=== PATIENT | male | born 2005 | race Caucasian/White ===

== ENCOUNTER 2024-01-13 18:09 | Emergency (ER) | payer OTHER, SELFPAY ==
[2024-01-13 18:14] VITALS: BP 124/80; PULSE 129; RESP 22; TEMP 37.4; O2SAT 98; BMI 23.6
--- NOTE | 2024-01-13 18:24 | ED_ITS ---
HPI - Extremity Injury (Upper) General Time Seen by Provider: 18:24 Date Seen: 01/13/24 Chief Complaint: Extremity Pain/Injury, Upper Stated Complaint: possible broken R arm Time Seen by Provider: 01/13/24 18:11 Source: patient and RN notes reviewed Mode of arrival: ambulatory Limitations: no limitations History of Present Illness HPI narrative: This 18-year-old male is coming in with concern of a right arm injury. Two days ago he was leaning back in a chair, went too far back and started to lose his balance. He turned around somewhat in the chair and braced his fall with his right arm. He is not sure if he rolled on top of the arm after the fall. Since then, he is noticing some pain in the elbow and the arm, especially with attempts at lifting anything. Pain is not in the shoulder, is not in his collarbone. He denies any numbness or tingling. He has no pain in the forearm, wrist, hand or fingers on the right side. He really has not noticed any s welling. He was concerned as he continues to have pain with range of motion at times, definitely has pain if he attempts to lift anything with this arm. Nothing else was injured. Patient goes to [facility]. MARIA complaint: injury to: right and arm Related Data Home Medications ?Medication ?Instructions ?Recorded ?Confirmed methylphenidate HCl 27 mg 27 mg PO DAILY 01/13/24 01/13/24 tablet,extended release 24 hr (Concerta) Allergies Allergy/AdvReac Type Severity Reaction Status Date / Time No Known Drug Allergies Allergy Verified 01/13/24 18:19 Review of Systems Narrative: As per HPI. PFSH PFSH Social History Smoking Status: Never smoker Do you use any of these nicotine containing products: None How often do you have a drink containing alcohol: never AUDIT-C Alcohol total score: 0 Non-prescribed substance use: denies use Exam Const: Vital Signs, click to edit/add: Vital Signs - 24 hr 01/13/24 18:14 Temperature 99.3 F Pulse Rate [Pulse Oximeter] 129 H Respiratory Rate 22 Blood Pressure [Le ft Upper Arm] 124/80 Pulse Oximetry 98 This 18-year-old male is alert, interactive, no apparent distress. Ambulatory into the ED of his own accord. He is nontender over his right clavicle, AC joint, glenohumeral joint, proximal humerus. I do not palpate any pain down his upper arm. He starts to have some pain around the right lateral elbow but I can still supinate pronate, does not cause him significant pain. He can fully flex at the elbow but extension causes him pain, seems to maybe be missing the full extension of this arm in comparison to his left. There is maybe just slight increased tissue thickening about the right elbow but no ecchymosis. Right elbow area certainly looks enlarged compared to his left. No pain down the forearm, no wrist pain, no hand or finger pain. He has preserved finger strength, hand policy change clerk strength, wrist flexion extension. He has no loss was strength about the elbow or the upper arm. No pain on arc of abduction or adduction with his shoulder. Does complain of some pain in his upper arm when I do biceps strength testing. He has no give-way strength testing anywhere throughout this arm. Documenting provider has reviewed patient's vital signs: yes Course Course ED Course: We will be obtaining x-rays of his humerus as well as his elbow on the right side. I suspect that there may be a radial head injury based on his examination but we will await x-ray images. Reevaluation(s) Time of Reevaluation #1: 19:32 Reevaluation #1: Provided patient a copy of his x-ray report. Reviewed that there is a radial head fracture which is what I suspected clinically. Will place him in a sling, did review pendulum exercises. Will have him follow up outpatient with Orthopedics. Vital Signs Vital signs: Initial Vital Signs Temperature 99.3 F 01/13/24 18:14 Temperature Source Temporal Artery Scan 01/13/24 18:14 Pulse Rate 129 H 01/13/24 18:14 Pulse Rhythm Regular 01/13/24 18:14 Respiratory Rate 22 01/13/24 18:14 Blood Pressure 124/80 01/13/24 18:14 Blood Pressure Mean 94 01/13/24 18:14 Blood Pressure Position Sitting 01/13/24 18:14 Pulse Oximetry 98 01/13/24 18:14 Vital Signs Temperature 99.3 F 01/13/24 18:14 Pulse Rate 129 H 01/13/24 18:14 Respiratory Rate 22 01/13/24 18:14 Blood Pressure 124/80 01/13/24 18:14 Pulse Oximetry 98 01/13/24 18:14 Temperature 99.3 F 01/13/24 18:14 Pulse Rate 129 H 01/13/24 18:14 Respiratory Rate 22 01/13/24 18:14 Blood Pressure 124/80 01/13/24 18:14 Pulse Oximetry 98 01/13/24 18:14 MDM - Extremity Injury (Upper) Imaging Data XR right humerus: Attestation: I have reviewed the pertinent imaging results. My impression: Do see posterior sail sign, probable radial head fracture, await Radiology over- read. Radiologist's impression: Patient: [facility] Facility:?[facility] Patient ID:?[id number] Site Patient ID:?[id number]. Site :?[id number] Study:?XRay-Extremity Right HUMERUS 2V-01/13/2024 6:50:26 PM Ordering Physician:?Ashwin Andrea Final Report: INDICATION [Fall] COMPARISON [None.] TECHNIQUE Three views of the right elbow and two views of the right humerus FINDINGS Acute minimally displaced fracture of the radial head. No additional acute displaced fracture is identified. [Moderate elbow joint effusion.] [No substantial degenerative change of the elbow.] IMPRESSION Acute minimally displaced fracture of the radial head with a moderate elbow joint effusion. Dictated by: Gabriel Santo MD @ 01/13/2024 19:28:41 (Electronic Signature) XR right elbow: Attestation: I have reviewed the pertinent imaging results. Radiologist's impression: Patient: [facility] Facility:?[facility] Patient ID:?[id number] Site Patient ID:?[id number]. Site :?2004 Study:?XRay-Extremity Right ELBOW-01/13/2024 6:49:54 PM Ordering Physician:?Ashwin Andrea Final Report: INDICATION: Fall COMPARISON: None. TECHNIQUE: Three views of the right elbow and two views of the right humerus FINDINGS: Acute minimally displaced fracture of the radial head. No additional acute displaced fracture is identified. Moderate elbow joint effusion. No substantial degenerative change of the elbow. IMPRESSION: Acute minimally displaced fracture of the radial head with a moderate elbow joint effusion. Dictated by Gabriel Santo MD @ 01/13/2024 7:28:07 PM (Electronic Signature) Discharge Plan Discharge Clinical Impression: Closed fracture of radial head Qualifiers: Encounter type: initial encounter Fracture alignment: displaced Laterality: right Qualified Code(s): S52.121A - Displaced fracture of head of right radius, initial encounter for closed fracture Patient Disposition: Home, Self-Care Condition: Stable Instructions: Elbow Fracture (ED) Additional Instructions: Use sling for immobilization and comfort. Can use ice to the elbow area to help decrease pain and swelling. Tylenol and ibuprofen alternating every 3-4 hours as needed for pain control, follow bottle directions for dosing. Need to call the orthopedic office to get scheduled for a follow-up, call tomorrow morning. The phone number for the orthopedic office is [phone]. Prescriptions: No Action methylphenidate HCl [Concerta] 27 mg tablet extended release 24hr 27 mg PO DAILY Follow Up/Referrals: Provider,Not a Local [Primary Care Provider] - Stand Alone Forms: The Original [employer] Info Instructions
--- NOTE | 2024-01-13 18:30 | CRLHL7_ITS ---
For Patients: As a result of the Cures Act, medical imaging exams and procedure reports are released immediately into your electronic medical record. You may view this report before your referring provider. If you have questions, please contact your health care provider. INDICATION [Fall] COMPARISON [None.] TECHNIQUE Three views of the right elbow and two views of the right humerus FINDINGS Acute minimally displaced fracture of the radial head. No additional acute displaced fracture is identified. [Moderate elbow joint effusion.] [No substantial degenerative change of the elbow.] IMPRESSION Acute minimally displaced fracture of the radial head with a moderate elbow joint effusion. Dictated by: Gabriel Santo MD @ 01/13/2024 19:28:41 (Electronically Signed)
--- NOTE | 2024-01-13 18:30 | CRLHL7_ITS ---
For Patients: As a result of the Cures Act, medical imaging exams and procedure reports are released immediately into your electronic medical record. You may view this report before your referring provider. If you have questions, please contact your health care provider. INDICATION: Fall COMPARISON: None. TECHNIQUE: Three views of the right elbow and two views of the right humerus FINDINGS: Acute minimally displaced fracture of the radial head. No additional acute displaced fracture is identified. Moderate elbow joint effusion. No substantial degenerative change of the elbow. IMPRESSION: Acute minimally displaced fracture of the radial head with a moderate elbow joint effusion. Dictated by Gabriel Santo MD @ 01/13/2024 7:28:07 PM (Electronically Signed)
== END 2024-01-13 19:53 | disposition home or self-care (01) ==
PROVIDERS: Emergency Provider Family Medicine
DX: S52.121A Displaced fracture of head of right radius, initial encounter for closed fracture (principal); W19.XXXA Unspecified fall, initial encounter
CPT/HCPCS: 73060; 73080; 99283